=== PATIENT | female | born 1970 | race Caucasian/White ===

== ENCOUNTER 2017-02-06 08:01 | Observation (INO) | payer OTHER ==
[~2017-02-06] VITALS: Ht 162.6 cm; Wt 59.4 kg
--- OUTSIDE RECORDS SUMMARY | 2017-02-06 08:06 | XMS REPORT ---
Author Author TRISTON AHUMADA Organization [facility] Address [address] [place] [address] Care Team Providers Care Associate Professor Of Music Name Role Phone TRISTON AHUMADA Unavailable PROBLEMS Type Condition ICD9-CM Code [id number] Code Onset Dates Condition Status SNOMED Code Problem Mixed hyperlipidemia E78.2 Active 432004401 Problem Medication intolerance Z78.9 Active 01642501 Problem Hypothyroidism, unspecified type E03.9 Active 31695791 Problem Diabetes type 2, uncontrolled E11.65 Active 184218326 Problem Statin intolerance Z78.9 Active 78797114 Problem Essential hypertension I10 Active 35332953 ALLERGIES Substance Reaction Event Type Date Status Pravastatin Sodium leg cramps Drug Allergy Mar, Active SOCIAL HISTORY No smoking Hx information available PLAN OF CARE Activity Details Follow Up 4 Weeks Reason:[facility]M DM VITAL SIGNS Height 64 in 2016-03-22 Weight 127.8 lbs 2016-03-22 Temperature 98.4 degrees Fahrenheit 2016-03-22 Heart Rate 84 bpm 2016-03-22 Respiratory Rate 16 2016-03-22 BMI 21.93 kg/m2 2016-03-22 Blood pressure systolic 140 mmHg 2016-03-22 Blood pressure diastolic 82 mmHg 2016-03-22 MEDICATIONS Medication Instructions Dosage Frequency Start Date End Date Duration Status Blood Glucose Monitor System w/Device 2 x per day Nov, Active Lisinopril 20 MG Orally Once a day 1 tablet 24h Active Levemir FlexTouch 100 UNIT/ML Subcutaneous 2 times a day 30 U 12h Active Levothyroxine Sodium 150 MCG 1 tablet Once a day Orally Active Lancets Test Strips 2 x daily Nov, Active MetFORMIN HCl ER 500 MG Orally twice a day(start with 1 tab daily then increase until at goal of 2 tabs twice daily) 2 tablet with evening meal Mar, Active Blood Glucose Test Strip Test Strips as directed May, Active Lisinopril 10 mg Orally Once a day as directed 24h Feb, Active RESULTS No Results PROCEDURES Procedure Date Ordered Related Diagnosis Body Site Office Visit, Est Pt., Level 3 Mar 22, 2016 IMMUNIZATIONS No Known Immunizations
--- OUTSIDE RECORDS SUMMARY | 2017-02-06 08:07 | XMS REPORT ---
Author Author JING LUZ [facility] eClinicalWorks Address Unknown Phone Unavailable Care Team Providers Care Rug Weaver Name Role Phone JING LUZ Unavailable Allergies, Adverse Reactions, Alerts Substance Reaction Event Type Pravastatin Sodium leg cramps Drug Allergy Problems Problem Type Condition Code Onset Dates Condition Status Problem Diabetes type 2, uncontrolled 250.02 Active Problem Diabetes type 2, uncontrolled E11.65 Active Medications No Known Medications Results No Known Results Summary Purpose eClinicalWorks Submission
--- OUTSIDE RECORDS SUMMARY | 2017-02-06 08:07 | XMS REPORT ---
Author Author JING LUZ [facility] eClinicalWorks Address Unknown Phone Unavailable Care Team Providers Care Dairy Management Specialist Name Role Phone JING LUZ CP Unavailable Allergies, Adverse Reactions, Alerts Substance Reaction Event Type Pravastatin Sodium leg cramps Drug Allergy Problems Problem Type Condition Code Onset Dates Condition Status Problem Diabetes type 2, uncontrolled 250.02 Active Assessment Diabetes type 2, uncontrolled E11.65 Active Problem Diabetes type 2, uncontrolled E11.65 Active Medications Medication Code System Code Instructions Start Date End Date Status Dosage Levothyroxine Sodium [facility] [address]-56 150 MCG Orally Once a day 1 tablet Blood Glucose Test Strip [facility] 0 Test Strips twice daily May 10, 2015 as directed Levemir FlexTouch [facility] [address]-44 100 UNIT/ML Subcutaneous Once a day November 23, 2014 42 U Procedures Procedure Coding System Code Date Office Visit, Est Pt., Level 3 CPT-4 23404 May 10, 2015 GLYCATED HEMOGLOBIN TEST CPT-4 27281 May 10, 2015 Vital Signs Date/Time: May 10, 2015 Cardiac Monitoring Heart Rate 102 bpm Temperature 99.1 F Height 64 in Blood Pressure Diastolic 80 mmHg Blood Pressure Systolic 110 mmHg Results Name Result Date Reference Range Unit Abnormality Flag A1C (IN HOUSE) ----A1C IN HOUSE >14.0 [id number] 4.30 - 5.6 % ----Previous A1c 13.9 20150510 ----Lot # [id number] ----Exp date [id number] Summary Purpose eClinicalWorks Submission
--- OUTSIDE RECORDS SUMMARY | 2017-02-06 08:07 | XMS REPORT ---
Author Author TRISTON AHUMADA Organization [facility] Address [address] [place] [address] Care Team Providers Care Wind Site Manager Name Role Phone TRISTON AHUMADA Unavailable PROBLEMS Type Condition ICD9-CM Code [id number] Code Onset Dates Condition Status SNOMED Code Problem Mixed hyperlipidemia E78.2 Active 055703850 Problem Statin intolerance Z78.9 Active 94444174 Problem Hypothyroidism, unspecified type E03.9 Active 08311323 Problem Diabetes type 2, uncontrolled E11.65 Active 059369280 Problem Medication intolerance Z78.9 Active 51207875 Problem Essential hypertension I10 Active 92914954 ALLERGIES Substance Reaction Event Type Date Status Pravastatin Sodium leg cramps Drug Allergy Apr, Active SOCIAL HISTORY No smoking Hx information available PLAN OF CARE Activity Details Follow Up 4 Weeks Reason:CHM DM VITAL SIGNS Height 64 in 2016-04-24 Weight 126.8 lbs 2016-04-24 Temperature 97.8 degrees Fahrenheit 2016-04-24 Heart Rate 80 bpm 2016-04-24 Respiratory Rate 16 2016-04-24 BMI 21.76 kg/m2 2016-04-24 Blood pressure systolic 128 mmHg 2016-04-24 Blood pressure diastolic 70 mmHg 2016-04-24 MEDICATIONS Medication Instructions Dosage Frequency Start Date End Date Duration Status Levemir FlexTouch 100 UNIT/ML Subcutaneous 2 times a day 30 U 12h Active Amoxicillin 500 MG Orally 3 times a day 1 capsule 8h Apr, Apr, 07 days Active Levothyroxine Sodium 150 MCG orally once per day 1 tablet Once a day Orally Active Lancets Test Strips 2 x daily Nov, Active Blood Glucose Monitor System w/Device 2 x per day Nov, Active Lisinopril 20 MG Orally Once a day 1 tablet 24h Active MetFORMIN HCl ER (MOD) 1000 MG Orally twice a day 1 tablet 12h Apr, Active Blood Glucose Test Strip Test Strips as directed May, Active RESULTS Name Result Date Reference Range TSH 2016-04-24 TSH 0.298 0.450-4.500 MICROALBUMIN, URINE (IN HOUSE) 2016-04-24 MICROALBUMIN normal Lot # [id number] Exp date 03/23 Clarity clear Color yellow ALB 30 CRE 300 A:C (IN HOUSE) <30 Control Control Lot # Exp date PROCEDURES Procedure Date Ordered Related Diagnosis Body Site ASSAY THYROID STIM HORMONE Apr 24, 2016 MICROALBUMIN, SEMIQUANT Apr 24, 2016 VENIPUNCT, ROUTINE* Apr 24, 2016 Office Visit, Est Pt., Level 3 Apr 24, 2016 IMMUNIZATIONS No Known Immunizations
--- OUTSIDE RECORDS SUMMARY | 2017-02-06 08:07 | XMS REPORT ---
Author Author MARION ARTEAGA [facility] Address Unknown Care Team Providers Care Managing Partner Name Role Phone MARION ARTEAGA Unavailable PROBLEMS Type Condition ICD9-CM Code ENU98-SM Code Onset Dates Condition Status SNOMED Code Problem Mixed hyperlipidemia E78.2 Active 671723022 Problem Statin intolerance Z78.9 Active 58734040 Problem Hypothyroidism, unspecified type E03.9 Active 77380076 Problem Diabetes type 2, uncontrolled E11.65 Active 236328989 Problem Medication intolerance Z78.9 Active 81704372 Problem Essential hypertension I10 Active 32457661 ALLERGIES Substance Reaction Event Type Date Status Pravastatin Sodium leg cramps Drug Allergy Apr, Active SOCIAL HISTORY No smoking Hx information available PLAN OF CARE Activity Details Follow Up prn Reason:hygeine VITAL SIGNS Height 64 in 2016-05-02 Blood pressure systolic 145 mmHg 2016-05-02 Blood pressure diastolic 84 mmHg 2016-05-02 MEDICATIONS Unknown Medications RESULTS No Results PROCEDURES Procedure Date Ordered Related Diagnosis Body Site LTD ORAL EVALUATION - PROBLEM FOCUS May 02, 2016 INTRAORL-PERIAPICAL 1 FILM 58162 May 02, 2016 EXTRAC ERUPTED TOOTH/EXPOSED ROOT May 02, 2016 BITEWING - SINGLE FILM May 02, 2016 IMMUNIZATIONS No Known Immunizations
--- OUTSIDE RECORDS SUMMARY | 2017-02-06 08:07 | XMS REPORT ---
Author Author ALEXANDER MEDINA Organization eClinicalWorks Address Unknown Phone Unavailable Care Team Providers Care Cold Rolling Machine Setter Name Role Phone ALEXANDER MEDINA CP Unavailable Allergies, Adverse Reactions, Alerts Substance Reaction Event Type Pravastatin Sodium leg cramps Drug Allergy Problems Problem Type Condition Code Onset Dates Condition Status Problem Diabetes type 2, uncontrolled E11.65 Active Assessment Diabetes type 2, uncontrolled E11.65 Active Problem Hypothyroidism, unspecified type E03.9 Active Assessment Hypothyroidism, unspecified type E03.9 Active Medications Medication Code System Code Instructions Start Date End Date Status Dosage Blood Glucose Monitor System [facility] [address] w/Device November 23, 2014 2 x per day Lisinopril [facility] [address]-78 5 MG Orally Once a day May 24, 2015 1 tablet Lancets NDC 0 Test Strips November 23, 2014 2 x daily Levothyroxine Sodium [facility] 13755435364 150 MCG 1 tablet Once a day Orally Blood Glucose Test Strip NDC 0 Test Strips twice daily May 10, 2015 as directed Levemir FlexTouch [facility] [address]-51 100 UNIT/ML Subcutaneous Once a day in am November 23, 2014 45 U Procedures Procedure Coding System Code Date Office Visit, Est Pt., Level 3 CPT-4 72831 Jan 26, 2016 Vital Signs Date/Time: Jan 26, 2016 Cardiac Monitoring Heart Rate 80 bpm Weight 132.2 lbs Height 64 in BMI 22.69 Index Blood Pressure Diastolic 84 mmHg Blood Pressure Systolic 144 mmHg Results No Known Results Summary Purpose eClinicalWorks Submission
--- OUTSIDE RECORDS SUMMARY | 2017-02-06 08:07 | XMS REPORT ---
Author Author TRISTON SALINAS Organization eClinicalWorks Address Unknown Phone Unavailable Care Team Providers Care Patent Prosecution Attorney Name Role Phone TRISTON SALINAS Unavailable Allergies No Known Allergies Problems Problem Type Condition Code Onset Dates Condition Status Problem Medication intolerance Z78.9 Active Problem Statin intolerance Z78.9 Active Problem Mixed hyperlipidemia E78.2 Active Problem Diabetes type 2, uncontrolled E11.65 Active Problem Essential hypertension I10 Active Problem Hypothyroidism, unspecified type E03.9 Active Medications Medication Code System Code Instructions Start Date End Date Status Dosage MetFORMIN HCl ER [facility] [address]-15 500 MG Orally twice a day Mar 22, 2016 one tab in am and 2 tabs at night Results No Known Results Summary Purpose eClinicalWorks Submission
--- OUTSIDE RECORDS SUMMARY | 2017-02-06 08:07 | XMS REPORT ---
Author Author TRISTON SALINAS [facility] eClinicalWorks Address Unknown Phone Unavailable Care Team Providers Care Healthcare Management Name Role Phone TRISTON SALINAS Unavailable Allergies, Adverse Reactions, Alerts Substance Reaction Event Type Pravastatin Sodium leg cramps Drug Allergy Problems Problem Type Condition Code Onset Dates Condition Status Assessment Tobacco abuse Z72.0 Active Assessment Diabetes type 2, uncontrolled E11.65 Active Assessment Hypothyroidism, unspecified type E03.9 Active Assessment Tobacco abuse counseling Z71.6 Active Problem Hypothyroidism, unspecified type E03.9 Active Problem Diabetes type 2, uncontrolled E11.65 Active Problem Essential hypertension I10 Active Assessment Dental caries K02.9 Active Assessment Essential hypertension I10 Active Assessment Tooth pain K08.89 Active Assessment Abscessed tooth K04.7 Active Medications Medication Code System Code Instructions Start Date End Date Status Dosage Blood Glucose Test Strip NDC 0 Test Strips twice daily May 10, 2015 as directed Lancets NDC 0 Test Strips November 23, 2014 2 x daily Lisinopril [facility] [address]-63 10 mg Orally Once a day Feb 23, 2016 as directed Levothyroxine Sodium [facility] 81051222473 150 MCG 1 tablet Once a day Orally Diflucan [facility] [address]-57 150 MG Orally Once a day ( at end of Amoxicillin script for yeast infection) Feb 23, 2016 1 tablet Metformin HCl [facility] [address]-23 500 MG Orally Twice a day Feb 23, 2016 (start with 1 once per day untile GI upset has decreased, usually 3 days) 1 tablet with meals Levemir FlexTouch [facility] [address]-29 100 UNIT/ML Subcutaneous Once a day in am November 23, 2014 50 U Blood Glucose Monitor System [facility] 79[address] w/Device November 23, 2014 2 x per day Amoxicillin [facility] [address]-79 500 MG Orally-GET INTO DENTIST TYREL!!!! IMPORTANT!!!! 3 times a day Feb 23, 2016 Feb 28, 2016 2 tablets now as a loading dose, then 1 tablet Procedures Procedure Coding System Code Date COMPREHEN METABOLIC PANEL CPT-4 79229 Feb 23, 2016 COMPLETE CBC W/AUTO DIFF WBC CPT-4 67476 Feb 23, 2016 GLYCATED HEMOGLOBIN TEST CPT-4 19322 Feb 23, 2016 ASSAY THYROID STIM HORMONE CPT-4 62970 Feb 23, 2016 VENIPUNCT, ROUTINE* CPT-4 69451 Feb 23, 2016 Office Visit, Est Pt., Level 5 CPT-4 18911 Feb 23, 2016 Vital Signs Date/Time: Feb 23, 2016 Cardiac Monitoring Heart Rate 88 bpm Weight 128.6 lbs Height 64 in BMI 22.07 Index Blood Pressure Diastolic 88 mmHg Blood Pressure Systolic 142 mmHg Results Name Result Date Reference Range Unit Abnormality Flag ROUTINE VENIPUNCTURE A1C (IN HOUSE) ----Exp date [id number] ----Previous A1c 12.8 20160223 ----Lot [id number] ----A1C IN HOUSE 11.6 20160223 4.3 - 5.6 % Summary Purpose eClinicalWorks Submission
--- OUTSIDE RECORDS SUMMARY | 2017-02-06 08:07 | XMS REPORT ---
Author Author TRISTON AHUMADA Organization [facility] Address [address] [place] [address] Care Team Providers Care Brick Pointer Name Role Phone TIRSTON AHUMADA Unavailable PROBLEMS Type Condition ICD9-CM Code [id number] Code Onset Dates Condition Status SNOMED Code Problem Mixed hyperlipidemia E78.2 Active 306626462 Problem Statin intolerance Z78.9 Active 39205777 Problem Hypothyroidism, unspecified type E03.9 Active 70599221 Problem Diabetes type 2, uncontrolled E11.65 Active 329446615 Problem Medication intolerance Z78.9 Active 81917186 Problem Essential hypertension I10 Active 77671065 ALLERGIES Substance Reaction Event Type Date Status Pravastatin Sodium leg cramps Drug Allergy May, Active SOCIAL HISTORY No smoking Hx information available PLAN OF CARE Activity Details Follow Up 3 Months Reason:CHM DM VITAL SIGNS Height 64 in 2016-05-22 Weight 127.4 lbs 2016-05-22 Temperature 97.8 degrees Fahrenheit 2016-05-22 Heart Rate 90 bpm 2016-05-22 Respiratory Rate 16 2016-05-22 BMI 21.87 kg/m2 2016-05-22 Blood pressure systolic 120 mmHg 2016-05-22 Blood pressure diastolic 70 mmHg 2016-05-22 MEDICATIONS Medication Instructions Dosage Frequency Start Date End Date Duration Status Blood Glucose Test Strip Test Strips as directed May, Active Blood Glucose Monitor System w/Device 2 x per day Nov, Active Lancets Test Strips 2 x daily Nov, Active Levothyroxine Sodium 100 MCG Orally once per day 1 tablet Once a day Orally 0 Active Levemir FlexTouch 100 UNIT/ML Subcutaneous 2 times a day 30 U 12h 0 Active MetFORMIN HCl ER (MOD) 1000 MG Orally twice a day 1 tablet 12h Apr, 0 Active Lisinopril 20 MG Orally Once a day 1 tablet 24h 0 Active Tradjenta 5 mg Orally Once a day 1 tablet 24h May, 0 days Active RESULTS Name Result Date Reference Range A1C (IN HOUSE) 2016-05-22 A1C IN HOUSE 10.2 4.3 - 5.6 % Previous A1c 11.6 Lot [id number] Exp date 11/20 PROCEDURES Procedure Date Ordered Related Diagnosis Body Site GLYCATED HEMOGLOBIN TEST May 22, 2016 Office Visit, Est Pt., Level 3 May 22, 2016 IMMUNIZATIONS No Known Immunizations
--- OUTSIDE RECORDS SUMMARY | 2017-02-06 08:07 | XMS REPORT ---
Author Author JING LUZ [facility] eClinicalWorks Address Unknown Phone Unavailable Care Team Providers Care Grain And Yeast Plants Supervisor Name Role Phone JING LUZ Unavailable Allergies, Adverse Reactions, Alerts Substance Reaction Event Type Pravastatin Sodium leg cramps Drug Allergy Problems Problem Type Condition Code Onset Dates Condition Status Problem Diabetes type 2, uncontrolled 250.02 Active Assessment Diabetes type 2, uncontrolled E11.65 Active Problem Diabetes type 2, uncontrolled E11.65 Active Medications Medication Code System Code Instructions Start Date End Date Status Dosage Levemir FlexTouch [facility] [address]-74 100 UNIT/ML Subcutaneous 2 times a day November 23, 2014 30 U Lisinopril [facility] [address]-63 5 MG Orally Once a day May 24, 2015 1 tablet Blood Glucose Monitor System [facility] [address] w/Device November 23, 2014 2 x per day Blood Glucose Test Strip ND 0 Test Strips twice daily May 10, 2015 as directed Lancets ND 0 Test Strips November 23, 2014 2 x daily Levothyroxine Sodium [facility] [address]-75 150 MCG Orally Once a day 1 tablet Procedures Procedure Coding System Code Date Office Visit, Est Pt., Level 3 CPT-4 96161 May 24, 2015 Vital Signs Date/Time: May 24, 2015 Temperature 98 F Weight 135.6 lbs Height 64 in BMI 23.27 Index Blood Pressure Diastolic 80 mmHg Blood Pressure Systolic 130 mmHg Cardiac Monitoring Heart Rate 74 bpm Results No Known Results Summary Purpose eClinicalWorks Submission
--- OUTSIDE RECORDS SUMMARY | 2017-02-06 08:07 | XMS REPORT ---
Author Author TRISTON SALINAS Organization eClinical[employer] Address Unknown Phone Unavailable Care Team Providers Care Geophysical Party Chief Name Role Phone TRISTON SALINAS Unavailable Allergies No Known Allergies Problems Problem Type Condition Code Onset Dates Condition Status Problem Hypothyroidism, unspecified type E03.9 Active Problem Diabetes type 2, uncontrolled E11.65 Active Problem Essential hypertension I10 Active Medications No Known Medications Results No Known Results Summary Purpose eClinicalWorks Submission
--- OUTSIDE RECORDS SUMMARY | 2017-02-06 08:07 | XMS REPORT ---
Author Author TRISTON SALINAS Organization eClinicalWorks Address Unknown Phone Unavailable Care Team Providers Care Vest Baster Name Role Phone TRISTON SALINAS Unavailable Allergies [...] twice daily May 10, 2015 as directed Results No Known Results Summary Purpose eClinicalWorks Submission
--- OUTSIDE RECORDS SUMMARY | 2017-02-06 08:07 | XMS REPORT ---
Author Author TRISTON AHUMADA Organization [facility] Address [address] [place] [address] Care Team Providers Care Orthopedic Physician Assistant Name Role Phone TRISTON AHUMADA Unavailable PROBLEMS Type Condition ICD9-CM Code IZB60-HA Code Onset Dates Condition Status SNOMED Code Problem Mixed hyperlipidemia E78.2 Active 344553111 Problem Medication intolerance Z78.9 Active 95921093 Problem Hypothyroidism, unspecified type E03.9 Active 43397174 Problem Diabetes type 2, uncontrolled E11.65 Active 037439638 Problem Statin intolerance Z78.9 Active 69312449 Problem Essential hypertension I10 Active 40368685 ALLERGIES Unknown Allergies SOCIAL HISTORY No smoking Hx information available PLAN OF CARE VITAL SIGNS MEDICATIONS Medication Instructions Dosage Frequency Start Date End Date Duration Status Levothyroxine Sodium 100 MCG Orally once per day 1 tablet Once a day Orally Active RESULTS No Results PROCEDURES No Known procedures IMMUNIZATIONS No Known Immunizations
--- NOTE | 2017-02-06 08:20 | Diagnostic Imaging Report ---
EXAM: CT head. TECHNIQUE: Noncontrast axial images of the brain were obtained. INDICATION: Right-sided numbness. FINDINGS: There is no intracranial hemorrhage, edema or mass effect. The brain parenchyma appears unremarkable. No hydrocephalus. The visualized portions of the orbits and paranasal sinuses appear unremarkable. IMPRESSION: Unremarkable study. Dictated by: Dictated on workstation # [id number]
[2017-02-06] MEDS ORDERED: LEVO137T2 PO (08:21)
[2017-02-06] MEDS ORDERED: INSU100I29 SC (08:21)
[2017-02-06] MEDS ORDERED: METF500T8 PO (08:21)
[2017-02-06] MEDS ORDERED: LEVO112T55 (08:21)
[2017-02-06] MEDS ORDERED: LISI-552 PO (08:21)
[2017-02-06] MEDS ORDERED: lisINopril 20 MG (ZESTRIL) TAB PO ONE (08:30)
--- NOTE | 2017-02-06 08:35 | ED Neurological Problem ---
General Chief Complaint: Neuro-Stroke Like Symptoms Stated Complaint: STROKE SYMPTOMS Nursing Triage Note: TO ROOM [address] PT STATES SHE WENT TO BED AROUND 9PM LAST NOC FEELING FINE. WOKE UP THIS AM AROUND 520 AND COULD NOT MOVE RIGHT LEG OR RIGHT ARM. STATES SHE FEELS MUCH BETTER THIS AM. Nursing Sepsis Screen: No Definite Risk Source: patient, RN/MD, EMS Exam Limitations: no limitations History of Present Illness Time seen by provider: 08:01 Initial Comments accepted in transfer from [facility] in [place], [place]. Patient arrives via EMS with report of waking up at 520 a.m. with symptoms of weakness to the right arm and right leg. States was unable to move those. She had to crawl to the bathroom. She did fall to the side and hit the right side of her head during that episode. Denies loss of consciousness. Seen at outside facility for concerns of weakness and stroke. Transferred here due to lack of CT capability at the outside facility. Patient's symptoms have subsequently resolved nearly completely with no residual weakness. Patient states that she still feels somewhat foggy although that has improved. Last known well time 9 p.m. last night. Denies dysuria or diarrhea. Denies fever or chills. Denies vomiting or other concerns. Timing/Duration: 1-3 hours, waxing and waning Severity: moderate Associated Symptoms: confusion, No fever/chills, No loss of consciousness, trouble walking, weakness Allergies and Home Medications Allergies Coded Allergies: Lvuihzs-Lll-Bhn Reductase Inhibitor (Verified Allergy, Unknown, 02/06/17) Home Medications Insulin Detemir 100 Unit/1 Ml Insuln.pen, (Reported) Levothyroxine Sodium 137 Mcg Tablet, (Reported) Levothyroxine Sodium 112 Mcg Tablet, (Reported) Lisinopril 20 Mg Tablet, (Reported) Metformin HCl 500 Mg Tab.er.24h, (Reported) Constitutional: see HPI, No chills, No fever Eyes: No Symptoms Reported Ears, Nose, Mouth, Throat: no symptoms reported Respiratory: no symptoms reported, No short of breath, No wheezing Cardiovascular: No chest pain, No edema Gastrointestinal: No abdominal pain, No diarrhea, No nausea, No vomiting Genitourinary: no symptoms reported : No Musculoskeletal: no symptoms reported Skin: no symptoms reported Psychiatric/Neurological: See HPI, Unable to Move Lower Ext, Unable to Move Upper Ext, Weakness Endocrine: No Symptoms Reported All Other Systems Reviewed Negative Unless Noted: Yes Past Ibebvjm-Iuagru-Pbetff Hx Patient Social History Alcohol Use: Occasionally Uses Recreational Drug Use: No Smoking Status: Current Everyday Smoker Recent Foreign Travel: No Contact w/Someone Who Travel: No Recent Infectious Disease Expo: No Surgeries History of Surgeries: Yes Surgeries: Hysterectomy, Tubal Ligation Respiratory History of Respiratory Disorde: No Cardiovascular History of Cardiac Disorders: Yes Cardiac Disorders: Hypertension Neurological History of Neurological Disord: No Genitourinary History of Genitourinary Disor: No Gastrointestinal History of Gastrointestinal Di: No Musculoskeletal History of Musculoskeletal Dis: No Endocrine History of Endocrine Disorders: Yes Endocrine Disorders: Hyperthyroidism, Diabetes, Insulin dep HEENT History of HEENT Disorders: No Cancer History of Cancer: No Psychosocial History of Psychiatric Problem: No Integumentary History of Skin or Integumenta: No Reviewed Nursing Assessment Reviewed/Agree w Nursing PMH: Yes Family Medical History Significant Family History: No Pertinent Family Hx Physical Exam Vital Signs Vital Sign - Last 12Hours 02/06/17 08:08 Temp 98.0 Pulse 84 B/P (MAP) 188/110 Pulse Ox 100 Capillary Refill : Less Than 3 Seconds General Appearance: WD/WN, no apparent distress HEENT: PERRL/EOMI, pharynx normal Neck: full range of motion, supple Respiratory: lungs clear, normal breath sounds Cardiovascular: regular rate, rhythm, no murmur Gastrointestinal: non tender, soft Back: normal inspection, no CVA tenderness, no vertebral tenderness Extremities: non-tender, normal inspection Neurologic/Psychiatric: billing control clerk II-XII nml as tested, no motor/sensory deficits, alert, normal mood/affect, oriented x 3 Crainal Nerves: normal hearing, normal speech, PERRL Coordination/Gait: normal gait Motor/Sensory: no motor deficit, no sensory deficit, no pronator drift Skin: normal color, warm/dry Stroke NIH Stroke Scale Assessment Level of Consciousness: 0=Alert (0), Level of Consciousness-Questions: 0= Answers both month/age (0), LOC Commands: 0=Performs both tasks (0), Visual Portillo: 0=No visual loss (0), Motor Function-Arms Right: 0=No drift (0), Motor Function-Arms Left: 0=No drift (0), Motor Function-Legs Left: 0=No drift (0), Limb Ataxia: 0=Absent (0), Sensory: 0=Normal:no loss (0), Best Language: 0=No aphasia (0), Dysarthria: 0=Normal (0), Extinction & Inattention: 0=No abnormality (0), Total: Progress/Results/Core Measures Results/Orders Lab Results Laboratory Tests Test 02/06/17 08:15 02/06/17 09:15 Range/Units Prothrombin Time 12.5 12.2-14.7 SEC INR Comment 0.9 0.8-1.4 Activated Partial Thromboplast Time 25 24-35 SEC D-Dimer 0.43 0.00-0.49 UG/ML Total Bilirubin 0.4 0.1-1.0 MG/DL Direct Bilirubin 0.2 0.0-0.3 MG/DL Indirect Bilirubin 0.2 MG/DL Aspartate Amino Transf (AST/SGOT) 17 5-34 U/L Alanine Aminotransferase (ALT/SGPT) 14 0-55 U/L Alkaline Phosphatase 52 40-136 U/L Troponin I < 0.30 <0.30 NG/ML Total Protein 6.8 6.4-8.2 GM/DL Albumin 4.0 3.2-4.5 GM/DL Thyroid Stimulating Hormone (TSH) 2.14 0.35-4.94 UIU/ML Urine Color YELLOW Urine Clarity CLEAR Urine pH 6.5 5-9 Urine Specific [place] 1.010 L 1.016-1.022 Urine Protein NEGATIVE NEGATIVE Urine Glucose (UA) NEGATIVE NEGATIVE Urine Ketones NEGATIVE NEGATIVE Urine Nitrite NEGATIVE NEGATIVE Urine Bilirubin NEGATIVE NEGATIVE Urine Urobilinogen NORMAL NORMAL MG/DL Urine Leukocyte Esterase NEGATIVE NEGATIVE Urine RBC (Auto) NEGATIVE NEGATIVE Urine RBC NONE /HPF Urine WBC NONE /HPF Urine Squamous Epithelial Cells 2-5 /HPF Urine Crystals NONE /LPF Urine Bacteria NEGATIVE /HPF Urine Casts NONE /LPF Urine Mucus NEGATIVE /LPF Urine Culture Indicated NO My Orders Orders - ADELE LUIS MD Protime With Inr (02/06/17 08:04) Partial Thromboplastin Time (02/06/17 08:04) Fibrin Degradation Products (02/06/17 08:04) Troponin I (02/06/17 08:04) Ua Culture If Indicated (02/06/17 08:04) Chest 1 View, Ap/Pa Only (02/06/17 08:04) Ekg Tracing (02/06/17 08:04) Vital Signs - Stroke Q15M (02/06/17 08:04) Ct Head Wo-R/O Stroke (02/06/17 08:04) O2 (02/06/17 08:04) Intake & Output 06,14,22 (02/06/17 08:04) Monitor-Rhythm Ecg Trace Only (02/06/17 08:04) Dysphagia Screening Tool (02/06/17 08:04) Liver Panel (02/06/17 08:22) Thyroid Stimulating Hormone (02/06/17 08:22) Lisinopril Tablet (Zestril Tablet) (02/06/17 08:30) Cho 60g/M 1snack (16-2000 Yfn) (02/06/17 Lunch) Medications Given in ED Current Medications Medications Dose Ordered Sig/José Route Start Time Stop Time Status Last Admin Dose Admin Lisinopril 20 mg ONCE ONCE PO 02/06/17 08:30 02/06/17 08:31 DC 02/06/17 08:49 20 MG Vital Signs/I&O Vital Sign - Last 12Hours 02/06/17 08:08 Temp 98.0 Pulse 84 B/P (MAP) 188/110 Pulse Ox 100 Blood Pressure Mean: 136 Point of Care Testing Finger Stick Blood Glucose: 90 Progress Note : Progress Note Seen and evaluated on arrival. Patient directly to CT on arrival. IV established at outside facility. Labs ordered and labs from outside facility reviewed. EKG and UA ordered. Stroke activation on arrival due to history. Symptoms appear to be resolving. Patient is not candidate for TPA due to last known well time 9 p.m. last night and patient has rapidly resolving symptoms. Blood pressure is elevated in the 180s over 100 range. Patient has not taken her lisinopril today. CT here is negative for acute bleed. We will go ahead and give a dose of lisinopril. Monitor patient. Outside facility labs show CBC with WBC at 10.5, RBC 4.39, hemoglobin 13.9 and hematocrit 41.5. Platelets are 288. Chemistry panel shows sodium of 143, potassium 4.2, chloride 106, CO2 of 25, calcium of 9.1, BUN of 12, creatinine 0.50 and glucose of 80. 1040: I have discussed the case with Dr. Shahid. Patient still has some residual dizziness and right hand numbness. Due to her significant family history and her risk factors and the fact that this is a first time incident with some residual do believe admission and further workup as indicated. Patient and family definitely agree. Dr. Shahid accepts patient for admission , observation status. We will continue workup with carotid ultrasound and MRI. Patient and family agree with plan. ECG Initial ECG Impression Date: Feb 06, 2017 Initial ECG Impression Time: 08:12 Initial ECG Rate: 77 Initial ECG Rhythm: Normal Sinus Initial ECG Impression: Normal Initial ECG Comparisson: No Previous ECG Available Comment Normal sinus rhythm with normal axis. No evidence of ST elevation [place]. No previous available for comparison. Interpreted by me. Diagnostic Imaging Diagonstic Imaging: CT Plain Films/CT/US/NM/MRI: head Comments NAME: JACOB FINE [facility] REC#: [id number] PT STATUS: REG ER : 1970 PHYSICIAN: ADELE LUIS MD ADMIT DATE: 02/06/17/ER Signed Date of Exam: 02/06/17 CT HEAD WO-R/O STROKE EXAM: CT head. TECHNIQUE: Noncontrast axial images of the brain were obtained. INDICATION: Right-sided numbness. FINDINGS: There is no intracranial hemorrhage, edema or mass effect. The brain parenchyma appears unremarkable. No hydrocephalus. The visualized portions of the orbits and paranasal sinuses appear unremarkable. IMPRESSION: Unremarkable study. Dictated by: Dictated on workstation # [id number] Dict: 02/06/17815 Trans: 02/06/17817 Interpreted by: SHANELL SOARES MD Electronically signed by: SHANELL SOARES MD 02/06/17817 Diagonstic Imaging: Xray Plain Films/CT/US/NM/MRI: chest Comments VIA [facility]. [place], [place] NAME: JACOB FIEN [facility] REC#: [id number] PT STATUS: REG ER : 1970 PHYSICIAN: ADELE LUIS MD ADMIT DATE: 02/06/17/ER Draft Date of Exam:02/06/17 CHEST 1 VIEW, AP/PA ONLY INDICATION: Stroke symptoms with inability to move right extremities. Portable upright view of the chest is obtained. No previous studies available at this time for comparison. FINDINGS: Heart size and pulmonary vascularity are within normal limits, and the lungs are clear, bilaterally. IMPRESSION: Unremarkable chest. Dictated on workstation # [id number] Dict: 02/06/17 0902 Trans: 02/06/17 0909 [facility] [id number] Interpreted by: THELMA CARMICHAEL MD Electronically signed by: Departure Communication (Admissions) Time/Spoke to Admitting Phy: 10:35 Impression Impression: Primary Impression: Transient cerebral ischemia Qualified Codes: G45.9 - Transient cerebral ischemic attack, unspecified Disposition: ADMITTED INPATIENT Condition: Stable Admissions Decision to Admit Reason: Admit from ER (General) Decision to Admit/Date: Feb 06, 2017 Time/Decision to Admit Time: 10:35 Departure-Patient Inst. Referrals: JIL BOATENG MD (PCP/Family) Primary Care Physician ADELE LUIS MD Feb 06, 2017 08:35
[2017-02-06 08:51] LABS: INR 0.9 (0.8-1.4); PROTHROMBIN TIME PATIENT 12.5 SEC (12.2-14.7)
[2017-02-06 08:56] LABS: ALANINE AMINOTRANSFERASE 14 U/L (0-55); ASPARTATE AMINO TRANSFERASE 17 U/L (5-34); BILIRUBIN,DIRECT 0.2 MG/DL (0.0-0.3); BILIRUBIN,INDIRECT 0.2 MG/DL; BILIRUBIN,TOTAL 0.4 MG/DL (0.1-1.0); TOTAL PROTEIN 6.8 GM/DL (6.4-8.2)
--- NOTE | 2017-02-06 09:10 | Diagnostic Imaging Report ---
INDICATION: Stroke symptoms with inability to move right extremities. Portable upright view of the chest is obtained. No previous studies available at this time for comparison. FINDINGS: Heart size and pulmonary vascularity are within normal limits, and the lungs are clear, bilaterally. IMPRESSION: Unremarkable chest. Dictated by: Dictated on workstation # [id number]
[2017-02-06 09:16] LABS: THYROID STIMULATING HORMONE 2.14 UIU/ML (0.35-4.94); TROPONIN I < 0.30 NG/ML (<0.30)
[2017-02-06 09:23] LABS: BILIRUBIN,URINE NEGATIVE (NEGATIVE); KETONES,URINE NEGATIVE (NEGATIVE); LEUKOCYTE ESTERASE ,URINE NEGATIVE (NEGATIVE); NITRITE,URINE NEGATIVE (NEGATIVE); PH,URINE 6.5 (5-9); PROTEIN,URINE NEGATIVE (NEGATIVE); UROBILINOGEN,URINE NORMAL (NORMAL)
[2017-02-06 11:25] VITALS: BP 156/89
[2017-02-06] MEDS ORDERED: NS IV 1000 ML 1,000 ML IV SCH (11:45)
[2017-02-06] MEDS ORDERED: CATHETER FLUSH 10 ML SYR IV PRN (11:45)
[2017-02-06] MEDS ORDERED: ONDANSETRON 4 MG/2 ML (SDV) Z0FRAN IV PRN (11:45)
[2017-02-06] MEDS ORDERED: INSU100I29 SQ (13:13)
[2017-02-06] MEDS ORDERED: OMG1KC PO (13:14)
[2017-02-06 13:56] VITALS: BP 156/89
[2017-02-06] MEDS ORDERED: RT-ALBUTEROL/IPRATROPIUM 3 ML (DUONEB) VIAL INH PRN (14:15)
[2017-02-06] MEDS ORDERED: inSUlin (REGULAR) HUMAN 1 UNIT/0.01 ML (CHARGE PER UNIT) SC SCH (14:30)
--- NOTE | 2017-02-06 14:55 | Diagnostic Imaging Report ---
PROCEDURE: US Carotid Duplex Bilateral. TECHNIQUE: Multiple Real-time grayscale images were obtained over the carotid arteries in various projections bilaterally. Additional duplex Doppler and color Doppler images were also obtained. INDICATION: Slurred speech. Right arm numbness. FINDINGS: There is no significant plaque identified on grayscale images. Color Doppler demonstrates patency of the common, internal, and external carotid arteries on both sides. The left and right vertebral arteries demonstrate antegrade flow. The peak systolic velocities in the right ICA are 50, 78, and 53 cm/s from proximal to distal and on the left are 37, 46, and 73 cm/s from proximal to distal. The ICA/CCA ratios are up to 1.1 on the right side and up to 0.8 on the left. IMPRESSION: The estimated underlying stenosis is in the range of 0-25% bilaterally. Dictated by: Dictated on workstation # [id number]
--- NOTE | 2017-02-06 15:14 | Diagnostic Imaging Report ---
PROCEDURE: MR imaging of the brain without contrast. TECHNIQUE: Multiplanar, multisequence MR imaging of the brain was performed without contrast. INDICATION: Right-sided weakness. FINDINGS: There is no diffusion restriction to suggest an acute infarct or other diffusion abnormality. The brain parenchyma demonstrates normal signal in the fong and white matter with no brain edema or mass identified. No significant demyelinating lesion is seen. There is crowded appearance of the structures at the level of the foramen magnum with cerebellar tonsillar herniation of about 0.8 cm below the level of the foramen magnum compatible with Chiari 1 malformation. There is slight flattening of the margins of the medulla oblongata particularly along the anterior left side aspect without abnormal signal seen. No hydrocephalus. No extra-axial fluid collection is seen. Central vascular flow-voids appear grossly unremarkable. The internal auditory canals and inner ear structures appear unremarkable. The pituitary gland is normal in size. No hypothalamic or pineal region mass. IMPRESSION: 1. No acute infarct. 2. There is cerebellar tonsillar herniation of about 8 mm below the level of foramen magnum compatible with Chiari 1 malformation. This is associated with crowded appearance of the structures at the foramen magnum and flattening of the anterior left aspect of the medulla oblongata without underlying brain edema or signal abnormality. Dictated by: Dictated on workstation # [id number]
[2017-02-06 15:30] VITALS: BP 142/82
[2017-02-06] MEDS: metFORMIN XR 500 MG (GLUCOPHAGE XR) TAB PO SCH (17:30)
[2017-02-06 19:50] VITALS: BP 160/85
[2017-02-06] MEDS ORDERED: inSUlin DETERMIR 1 UNIT/0.01 ML (LEVEMIR) CHARGE PER UNIT SQ SCH (21:00)
[2017-02-06] MEDS ORDERED: INSULIN DETEMIR 32 UNIT SQ SCH (21:00)
[2017-02-06] MEDS: inSUlin ASPART (NovoLOG) 1 UNIT/0.01 ML (CHARGE PER UNIT) SC SCH (21:49)
[2017-02-07] VITALS: BP 132/73
[2017-02-07 04:00] VITALS: BP 146/86
[2017-02-07] MEDS: inSUlin ASPART (NovoLOG) 1 UNIT/0.01 ML (CHARGE PER UNIT) SC SCH ×2 (06:02→11:11)
[2017-02-07 06:30] LABS: BASOPHILS % (AUTO) 0 % (0-10); EOSINOPHILS # (AUTO) 0.3 10^3/uL (0.0-0.3); EOSINOPHILS % (AUTO) 4 % (0-10); LYMPHOCYTES # (AUTO) 2.6 X 10^3 (1.0-4.0); LYMPHOCYTES % (AUTO) 36 % (12-44); MEAN CORPUSCULAR HEMOGLOBIN 31 PG (25-34); MEAN CORPUSCULAR HGB CONC 33 G/DL (32-36); MEAN CORPUSCULAR VOLUME 94 FL (80-99); MEAN PLATELET VOLUME 10.2 FL (7.4-10.4); MONOCYTES # (AUTO) 0.5 X 10^3 (0.0-1.0); MONOCYTES % (AUTO) 8 % (0-12); NEUTROPHILS # (AUTO) 3.8 X 10^3 (1.8-7.8); NEUTROPHILS % (AUTO) 52 % (42-75); PLATELET COUNT 279 10^3/uL (130-400); RED BLOOD COUNT 4.17 10^6/uL (4.35-5.85); RED CELL DISTRIBUTION WIDTH 13.1 % (10.0-14.5); WHITE BLOOD COUNT 7.2 10^3/uL (4.3-11.0)
[2017-02-07] MEDS ORDERED: LEVOTHYROXINE 25 MCG (LEVOTHROID) TAB PO SCH (06:30)
[2017-02-07] MEDS ORDERED: LEVOTHYROXINE 112 MCG (LEVOTHROID) TAB PO SCH (06:30)
[2017-02-07 06:52] LABS: CARBON DIOXIDE 25 MMOL/L (21-32); CHLORIDE 107 MMOL/L (98-107); POTASSIUM 3.8 MMOL/L (3.6-5.0); SODIUM 141 MMOL/L (135-145)
[2017-02-07 06:53] LABS: ALANINE AMINOTRANSFERASE 13 U/L (0-55); ALBUMIN 3.6 GM/DL (3.2-4.5); ANION GAP 9 MMOL/L (5-14); ASPARTATE AMINO TRANSFERASE 12 U/L (5-34); BILIRUBIN,TOTAL 0.2 MG/DL (0.1-1.0); BLOOD UREA NITROGEN 10 MG/DL (7-18); BUN/CREATININE RATIO 13; CALCIUM 9.1 MG/DL (8.5-10.1); CREATININE SERUM 0.77 MG/DL (0.60-1.30); GFR ESTIMATED > 60; GLUCOSE 168 MG/DL (70-105); TOTAL PROTEIN 5.9 GM/DL (6.4-8.2)
[2017-02-07] MEDS: metFORMIN XR 500 MG (GLUCOPHAGE XR) TAB PO SCH (07:31)
[2017-02-07 08:40] VITALS: BP 146/87
[2017-02-07] MEDS ORDERED: inSUlin DETERMIR 1 UNIT/0.01 ML (LEVEMIR) CHARGE PER UNIT SQ SCH (09:00)
[2017-02-07] MEDS ORDERED: lisINopril 20 MG (ZESTRIL) TAB PO SCH ×2 (09:00)
[2017-02-07] MEDS ORDERED: ASPIRIN E.C. 325 MG (ECOTRIN) TABLET PO SCH (09:00)
[2017-02-07] MEDS ORDERED: INSULIN DETEMIR 42 UNIT SC SCH (09:00)
[2017-02-07] MEDS ORDERED: NON-FORMULARY MEDICATION 1 EA EA (Levothyroxine Sodium 137 MCG) PO SCH (09:00)
[2017-02-07] MEDS ORDERED: INFLUENZA TRIvalent 2017-2018 0.5 ML/45 MCG SYR IM ONE (10:00)
--- NOTE | 2017-02-07 10:13 | Short Stay Summary ---
HPI History of Present Illness: 46yo woman with history of uncontrolled diabetes, HTN, HL presented to ER with complaints that she was unable to move her right arm or leg during the night last night. Her father is of an AMI at 42, and she has multiple family members with history of stroke. She had to crawl to [facility] bathroom on the floor before she was able to call EMS. SHe was then transferred from [facility] to [facility]. Last well known time was 9pm when she went to bed. In [facility] she was still somewhat dizzy. Today, patient discloses that she feels much better and has returned to baseline. She is concerned that not being on her BP medicine precipitated the TIA. States that she forgot to refill it and then just didn't worry about it. Has also thought about quitting smoking but still not quite ready. Hasn't smoked since Sunday. Source: patient, family (mother is an RN and was in the room) Exam Limitations: no limitations Date seen by provider: Feb 07, 2017 Time Seen by Provider: 08:30 Attending Physician Pamela Shaihd MD PCP Megan Long DO Consult Date of Admission Feb 06, 2017 at 10:44 am Home Medications Home Medications Reviewed patient Home Medication Reconciliation Form Allergies Coded Allergies: Jlutyqj-Jce-Hcx Reductase Inhibitor (Verified Allergy, Unknown, 02/06/17) OQD-Vgqrva-Ooybri Hx Patient Social History Alcohol Use: Occasionally Uses Recreational Drug Use: No Smoking Status: Current Everyday Smoker Type Used: Cigarettes Recent Foreign Travel: No Contact w/other who traveled: No Recent Infectious Disease Expo: No Physical Abuse Screen: No Sexual Abuse: No Immunizations Up To Date Date of Pneumonia Vaccine: Feb 07, 2016 Family Medical History Significant Family History: No Pertinent Family Hx Family History: Cardiovascular disease 19 FATHER, Onset:30's - 40 FH: lung cancer Review of Systems (CHC) Constitutional: no symptoms reported All Other Systems Reviewed Negative Unless Noted: Yes Reviewed Test Results Reviewed Test Results Lab Laboratory Tests Test 02/06/17 08:11 02/06/17 08:15 02/06/17 09:15 02/06/17 10:31 Range/Units Glucometer 90 93 70-110 MG/DL Prothrombin Time 12.5 12.2-14.7 SEC INR Comment 0.9 0.8-1.4 Activated Partial Thromboplast Time 25 24-35 SEC D-Dimer 0.43 0.00-0.49 UG/ML Total Bilirubin 0.4 0.1-1.0 MG/DL Direct Bilirubin 0.2 0.0-0.3 MG/DL Indirect Bilirubin 0.2 MG/DL Aspartate Amino Transf (AST/SGOT) 17 5-34 U/L Alanine Aminotransferase (ALT/SGPT) 14 0-55 U/L Alkaline Phosphatase 52 40-136 U/L Troponin I < 0.30 <0.30 NG/ML Total Protein 6.8 6.4-8.2 GM/DL Albumin 4.0 3.2-4.5 GM/DL Thyroid Stimulating Hormone (TSH) 2.14 0.35-4.94 UIU/ML Urine Color YELLOW Urine Clarity CLEAR Urine pH 6.5 5-9 Urine Specific [place] 1.010 L 1.016-1.022 Urine Protein NEGATIVE NEGATIVE Urine Glucose (UA) NEGATIVE NEGATIVE Urine Ketones NEGATIVE NEGATIVE Urine Nitrite NEGATIVE NEGATIVE Urine Bilirubin NEGATIVE NEGATIVE Urine Urobilinogen NORMAL NORMAL MG/DL Urine Leukocyte Esterase NEGATIVE NEGATIVE Urine RBC (Auto) NEGATIVE NEGATIVE Urine RBC NONE /HPF Urine WBC NONE /HPF Urine Squamous Epithelial Cells 2-5 /HPF Urine Crystals NONE /LPF Urine Bacteria NEGATIVE /HPF Urine Casts NONE /LPF Urine Mucus NEGATIVE /LPF Urine Culture Indicated NO Test 02/06/17 15:38 02/06/17 20:53 02/07/17 05:17 02/07/17 05:48 Range/Units Glucometer 140 H 308 H 66 L 141 H 70-110 MG/DL Test 02/07/17 06:08 02/07/17 09:38 02/07/17 11:01 Range/Units White Blood Count 7.2 4.3-11.0 10^3/uL Red Blood Count 4.17 L 4.35-5.85 10^6/uL Hemoglobin 13.0 11.5-16.0 G/DL Hematocrit 39 35-52 % Mean Corpuscular Volume 94 80-99 FL Mean Corpuscular Hemoglobin 31 25-34 PG Mean Corpuscular Hemoglobin Concent 33 32-36 G/DL Red Cell Distribution Width 13.1 10.0-14.5 % Platelet Count 279 130-400 10^3/uL Mean Platelet Volume 10.2 7.4-10.4 FL Neutrophils (%) (Auto) 52 42-75 % Lymphocytes (%) (Auto) 36 12-44 % Monocytes (%) (Auto) 8 0-12 % Eosinophils (%) (Auto) 4 0-10 % Basophils (%) (Auto) 0 0-10 % Neutrophils # (Auto) 3.8 1.8-7.8 X 10^3 Lymphocytes # (Auto) 2.6 1.0-4.0 X 10^3 Monocytes # (Auto) 0.5 0.0-1.0 X 10^3 Eosinophils # (Auto) 0.3 0.0-0.3 10^3/uL Basophils # (Auto) 0.0 0.0-0.1 10^3/uL Sodium Level 141 135-145 MMOL/L Potassium Level 3.8 3.6-5.0 MMOL/L Chloride Level 107 98-107 MMOL/L Carbon Dioxide Level 25 21-32 MMOL/L Anion Gap 9 5-14 MMOL/L Blood Urea Nitrogen 10 7-18 MG/DL Creatinine 0.77 0.60-1.30 MG/DL Estimat Glomerular Filtration Rate > 60 BUN/Creatinine Ratio 13 Glucose Level 168 H 70-105 MG/DL Calcium Level 9.1 8.5-10.1 MG/DL Total Bilirubin 0.2 0.1-1.0 MG/DL Aspartate Amino Transf (AST/SGOT) 12 5-34 U/L Alanine Aminotransferase (ALT/SGPT) 13 0-55 U/L Alkaline Phosphatase 51 40-136 U/L Total Protein 5.9 L 6.4-8.2 GM/DL Albumin 3.6 3.2-4.5 GM/DL Triglycerides Level 102 <150 MG/DL Cholesterol Level 215 H < 200 MG/DL LDL Cholesterol Direct 130 H 1-129 MG/DL VLDL Cholesterol 20 5-40 MG/DL HDL Cholesterol 63 H 40-60 MG/DL Glucometer 305 H 261 H 70-110 MG/DL Radiology Date of Exam: 02/06/17 MRI BRAIN W/O CONTRAST PROCEDURE: MR imaging of the brain without contrast. TECHNIQUE: Multiplanar, multisequence MR imaging of the brain was performed without contrast. INDICATION: Right-sided weakness. FINDINGS: There is no diffusion restriction to suggest an acute infarct or other diffusion abnormality. The brain parenchyma demonstrates normal signal in the fong and white matter with no brain edema or mass identified. No significant demyelinating lesion is seen. There is crowded appearance of the structures at the level of the foramen magnum with cerebellar tonsillar herniation of about 0.8 cm below the level of the foramen magnum compatible with Chiari 1 malformation. There is slight flattening of the margins of the medulla oblongata particularly along the anterior left side aspect without abnormal signal seen. No hydrocephalus. No extra-axial fluid collection is seen. Central vascular flow-voids appear grossly unremarkable. The internal auditory canals and inner ear structures appear unremarkable. The pituitary gland is normal in size. No hypothalamic or pineal region mass. IMPRESSION: 1. No acute infarct. 2. There is cerebellar tonsillar herniation of about 8 mm below the level of foramen magnum compatible with Chiari 1 malformation. This is associated with crowded appearance of the structures at the foramen magnum and flattening of the anterior left aspect of the medulla oblongata without underlying brain edema or signal abnormality. Date of Exam: 02/06/17 US CAROTID JENNIFER COMPLETE [id number] PROCEDURE: US Carotid Duplex Bilateral. TECHNIQUE: Multiple Real-time grayscale images were obtained over the carotid arteries in various projections bilaterally. Additional duplex Doppler and color Doppler images were also obtained. INDICATION: Slurred speech. Right arm numbness. FINDINGS: There is no significant plaque identified on grayscale images. Color Doppler demonstrates patency of the common, internal, and external carotid arteries on both sides. The left and right vertebral arteries demonstrate antegrade flow. The peak systolic velocities in the right ICA are 50, 78, and 53 cm/s from proximal to distal and on the left are 37, 46, and 73 cm/s from proximal to distal. The ICA/CCA ratios are up to 1.1 on the right side and up to 0.8 on the left. IMPRESSION: The estimated underlying stenosis is in the range of 0-25% bilaterally. Physical Exam-([facility]) Physical Exam Vital Signs VS - Last 72 Hours, by Label 02/06/17 02/06/17 02/06/17 02/06/17 08:08 11:20 11:25 11:25 Temp 98.0 98.2 Pulse 84 76 77 77 Resp 18 24 24 B/P (MAP) 188/110 156/89 156/89 Pulse Ox 100 99 100 100 O2 Delivery Room Air Room Air 02/06/17 02/06/17 02/06/17 02/06/17 13:56 13:56 14:56 15:30 Temp 98.6 Pulse 74 61 Resp 20 B/P (MAP) 142/82 Pulse Ox 98 98 99 O2 Delivery Room Air Room Air Room Air 02/06/17 02/06/17 02/07/17 02/07/17 19:50 23:15 00:00 04:00 Temp 98.5 97.8 97.0 Pulse 67 75 72 Resp 20 16 18 B/P (MAP) 160/85 132/73 146/86 Pulse Ox 97 98 99 O2 Delivery Room Air Room Air Room Air Room Air 02/07/17 08:40 Temp 97.5 Pulse 76 Resp 20 B/P (MAP) 146/87 Pulse Ox 99 O2 Delivery Room Air Capillary Refill : Less Than 3 SecondsLess Than 3 Seconds General Appearance: WD/WN, no apparent distress HEENT: PERRL/EOMI, normal ENT inspection, pharynx normal Neck: non-tender, full range of motion, supple, normal inspection Respiratory: chest non-tender, lungs clear, normal breath sounds, no respiratory distress, no accessory muscle use Cardiovascular: regular rate, rhythm, no edema, no gallop, no JVD, no murmur Gastrointestinal: normal bowel sounds, non tender, soft, no organomegaly Extremities: normal range of motion, non-tender, normal inspection, no pedal edema, no calf tenderness, normal capillary refill Neurologic/Psychiatric: recyclable materials sorter II-XII nml as tested, no motor/sensory deficits, alert, normal mood/affect, oriented x 3 Skin: normal color, warm/dry Short Stay Diagnosis Discharge Diagnosis-Short Stay Admission Diagnosis TRANSIENT ISCHEMIC ATTACK CHIARI MALFORMATION TYPE 1 DMT2, UNCONTROLLED HYPERTENSION HYPERLIPIDEMIA TOBACCO ABUSE Final Discharge Diagnosis SAME Conclusion Plan Loraine's neurologic status returned to baseline, and she was no longer dizzy and had no weakness at the time of discharge. She did not require rehabilitation based on my evaluation. We did discharge her to take a 325mg of aspirin per day for secondary stroke prevention. She has a history of muscle cramps with statins, so we started Crestor at a very low dose. She can titrate that up with her PCP if she tolerates this dose. We talked about 5 things she can do to prevent another episode like this 1. stop smoking - she will discuss aids in taht with ehr PCP, did not think she needed any today 2. lower cholesterol - take statin if at all possible 3. antiplatelet therapy - take ASA 325mg daily 4. control BP - needs to restart the lisinopril 5. control BS - needs to discuss starting a prandial insulin with her PCP and needs a referral to Rima Johnson, oncology navigator Regarding the Chiari malformation, this should be further evaluation by a neurosurgeon. As it is not clinically significant, I do not believe it will require surgery, but it would be estrada to have her evaluated. This should be arranged by her PCP. Clinical Quality Measures DVT/VTE Risk/Contraindication: Risk Factor Score Per Nursin RFS Level Per Nursing on Admit: 2=Moderate Copy Copies To 1: PAMELA LUX APRN, MD Feb 07, 2017 10:13 am
[2017-02-07] MEDS ORDERED: ROSU5TAB PO (10:25)
[2017-02-07] MEDS ORDERED: LISI-552 PO (10:25)
--- NOTE | 2017-02-07 10:30 | Discharge Instructions ---
Discharge [facility] Discharge Medications New, Converted or Re-Newed RX: Transmitted to Pharmacy New Medications: Rosuvastatin Calcium (Crestor) 5 Mg Tablet 5 MG PO HS, #30 TAB 0 Refills Lisinopril (Lisinopril) 20 Mg Tablet 20 MG PO DAILY@0900 for Blood Pressure, #30 TAB 0 Refills Continued Medications: Insulin Detemir (Levemir Flextouch) 100 Unit/1 Ml Insuln.pen 42 UNITS SC DAILY, EA Insulin Detemir (Levemir Flextouch) 100 Unit/1 Ml Insuln.pen 32 UNIT SQ HS, EA Levothyroxine Sodium (Levothyroxine Sodium) 137 Mcg Tablet 137 MCG PO DAILY, TAB LAST FILLED #30 17 Lisinopril (Lisinopril) 20 Mg Tablet 20 MG PO DAILY, TAB LAST FILLED #30 11-28-16 Metformin HCl (Metformin HCl ER) 500 Mg Tab.er.24h 1000 MG PO BID, TAB TAKES 2 (500MG) TABLETS [place] 3 Polyunsat Fatty Acids (Fish Oil 1,000 mg Capsule) 1,000 Mg Cap 2000 MG PO DAILY, CAP TAKES 2 (1,000MG) CAPSULES Patient Instructions Goal/Follow Up Appt: [facility] AT [facility] 02/14 AT 10:20 Patient Instructions: 1. PLEASE TAKE ASPIRIN 325MG DAILY FOR STROKE PREVENTION 2. PLEASE TAKE SMALL DOSE OF CRESTOR. DISCUSS HOW YOU ARE DOING WITH TRISTON AT YOUR APPOINTMENT TO SEE IF YOU SHOULD CONTINUE IT OR INCREASE THE DOSE. 3. KEEP CAREFUL TRACK OF YOUR BLOOD SUGARS. I RECOMMEND YOU SEE ESHA SANCHES RN TO DISCUSS GETTING ON A MEALTIME INSULIN DOSE. 4. STOP SMOKING - DISCUSS WITH TRIST[facility] IF YOU WANT SOMETHING TO HELP YOU WITH THAT. 5. TAKE ALL MEDICATIONS PRESCRIBED, ESPECIALLY YOUR BLOOD PRESSURE MEDICATION Return to The Hospital For: NUMBNESS/WEAKNESS IN AN EXTREMITY, SLURRED SPEECH, CHEST PAIN Activity & Diet Discharge Diet: ADA Diet, Low Fat/Low Cholesterol Activity as Tolerated: Yes Copy Copies To 1: PAMELA WALL APRN, MD Feb 07, 2017 10:30 am
[2017-02-07 10:57] LABS: CHOLESTEROL 215 MG/DL (< 200); DIRECT LDL 130 MG/DL (1-129); TRIGLYCERIDES 102 MG/DL (<150); VLDL CHOLESTEROL 20 MG/DL (5-40)
[2017-02-07 11:20] VITALS: BP 146/87
== END 2017-02-07 10:26 | disposition home or self-care (01) ==
LOC: ER 08:03 → UNDOADMOB 10:44 → 4TH 10:44 → UNDODISOB 02-07 11:20
PROVIDERS: ADMIT Pediatrics; ATTEND Pediatrics
DX: Z79.84 Long term (current) use of oral hypoglycemic drugs; G45.9 Transient cerebral ischemic attack, unspecified; Z79.899 Other long term (current) drug therapy; E11.65 Type 2 diabetes mellitus with hyperglycemia; Z91.14 Patient's other noncompliance with medication regimen; G93.5 Compression of brain; E78.5 Hyperlipidemia, unspecified; I10 Essential (primary) hypertension; F17.210 Nicotine dependence, cigarettes, uncomplicated
CPT/HCPCS: 36415; 70450; 70551; 71010; 80053; 80061; 80076; 81000; 82962; 84443; 84484; 85025; 85379; 85610; 85730; 93005; 93041; 93880; 94760; G0378